=== PATIENT | male | born 1995 | race African-American/Black ===

== ENCOUNTER 2018-09-24 19:28 | Emergency (ER) | payer MEDICAID ==
[~2018-09-24] VITALS: Ht 172.7 cm; Wt 59.0 kg
[2018-09-24 20:45] VITALS: BP 145/85
[2018-09-24] MEDS ORDERED: SODIUM CHLORIDE 0.9% 1,000 ML IV ONE (20:57)
[2018-09-24] MEDS ORDERED: LORAZEPAM 2MG/ML CPJ IV ONE (21:00)
== END 2018-09-24 21:46 | disposition home or self-care (01) ==
LOC: ER 19:28
DX: F15.10 Other stimulant abuse, uncomplicated (principal); F32.9 Major depressive disorder, single episode, unspecified; F90.9 Attention-deficit hyperactivity disorder, unspecified type; N52.9 Male erectile dysfunction, unspecified
CPT/HCPCS: 99281; J7030

== ENCOUNTER 2019-06-09 12:34 | Emergency (ER) | payer MEDICAID ==
[~2019-06-09] VITALS: Ht 170.2 cm; Wt 61.0 kg
[2019-06-09 14:20] VITALS: BP 127/80
== END 2019-06-09 14:20 | disposition home or self-care (01) ==
LOC: ER 12:34
DX: Z03.89 Encounter for observation for other suspected diseases and conditions ruled out (principal); F32.9 Major depressive disorder, single episode, unspecified; F90.9 Attention-deficit hyperactivity disorder, unspecified type
CPT/HCPCS: 76870; 93976; 99284

== ENCOUNTER 2019-06-16 10:02 | Emergency (ER) | payer MEDICAID ==
[~2019-06-16] VITALS: Ht 345.4 cm; Wt 60.0 kg
[2019-06-16 10:57] LABS: CLARITY URINE TURBID (CLEAR); COLOR URINE YELLOW (YELLOW); KETONES URINE NEGATIVE (NEGATIVE); LEUKOCYTE ESTERASE URINE NEGATIVE (NEGATIVE); NITRITE URINE NEGATIVE (NEGATIVE); OCCULT BLOOD URINE NEGATIVE (NEGATIVE); PROTEIN URINE NEGATIVE (NEGATIVE); SPECIFIC GRAVITY URINE 1.019 (1.005-1.030); UROBILINOGEN URINE 0.2 E.U./dL (0.2-1.0)
[2019-06-16 11:15] VITALS: BP 115/72
== END 2019-06-16 11:25 | disposition home or self-care (01) ==
LOC: ER 10:02
DX: R10.30 Lower abdominal pain, unspecified (principal); F32.9 Major depressive disorder, single episode, unspecified
CPT/HCPCS: 81003; 99283

== ENCOUNTER 2019-09-03 21:42 | Emergency (ER) | payer MEDICAID ==
[~2019-09-03] VITALS: Ht 170.2 cm; Wt 67.5 kg
[2019-09-03] MEDS ORDERED: AZITHROMYCIN 500 MG TABLET PO ONE (23:45)
[2019-09-04 00:19] LABS: CLARITY URINE CLEAR (CLEAR); COLOR URINE YELLOW (YELLOW); KETONES URINE TRACE (NEGATIVE); LEUKOCYTE ESTERASE URINE NEGATIVE (NEGATIVE); NITRITE URINE NEGATIVE (NEGATIVE); OCCULT BLOOD URINE NEGATIVE (NEGATIVE); PH URINE 6.5 (4.5-8.0); PROTEIN URINE NEGATIVE (NEGATIVE); SPECIFIC GRAVITY URINE 1.029 (1.005-1.030); UROBILINOGEN URINE 0.2 E.U./dL (0.2-1.0)
[2019-09-04 00:45] VITALS: BP 122/67
[2019-09-06 08:07] LABS: CHLAMYDIA TRACHOMATIS NAA Negative (Negative); NEISSERIA GONORRHOEAE NAA Negative (Negative)
== END 2019-09-04 00:45 | disposition home or self-care (01) ==
LOC: ER 21:42
DX: N34.2 Other urethritis (principal); L03.011 Cellulitis of right finger
CPT/HCPCS: 81003; 82962; 87491; 87591; 99283

== ENCOUNTER 2019-09-05 09:44 | Emergency (ER) | payer MEDICAID ==
[~2019-09-05] VITALS: Ht 172.7 cm; Wt 67.0 kg
[2019-09-05] MEDS ORDERED: BACITRACIN ZINC OINT UDPKT TOP ONE (10:15)
[2019-09-05] MEDS ORDERED: LIDOCAINE HCL/PF 1% 10 MG/ML 5ML VIAL IJ ONE (10:15)
[2019-09-05] MEDS ORDERED: TRAMADOL 50MG TABLET PO ONE (10:30)
[2019-09-05 11:00] VITALS: BP 144/87
[2019-09-05] MEDS ORDERED: IBUPROFEN 600MG TABLET PO ONE (11:00)
== END 2019-09-05 11:04 | disposition home or self-care (01) ==
LOC: ER 09:44
DX: L03.011 Cellulitis of right finger (principal); Z20.2 Contact with and (suspected) exposure to infections with a predominantly sexual mode of transmission
CPT/HCPCS: 10060; 99284; J3490

== ENCOUNTER 2021-07-24 12:26 | Emergency (ER) | payer MEDICAID, OTHER ==
[~2021-07-24] VITALS: Ht 172.7 cm; Wt 76.0 kg
[2021-07-24 12:37] VITALS: BP 133/107
[2021-07-24 13:33] LABS: CLARITY URINE CLEAR (CLEAR); COLOR URINE DARK YELLOW (YELLOW); KETONES URINE 1+ (NEGATIVE); LEUKOCYTE ESTERASE URINE NEGATIVE (NEGATIVE); NITRITE URINE NEGATIVE (NEGATIVE); OCCULT BLOOD URINE NEGATIVE (NEGATIVE); PH URINE 5.5 (4.5-8.0); PROTEIN URINE NEGATIVE (NEGATIVE); SPECIFIC GRAVITY URINE 1.032 (1.005-1.030)
== END 2021-07-24 14:00 | disposition home or self-care (01) ==
LOC: ER 12:26
DX: R35.0 Frequency of micturition (principal); F12.10 Cannabis abuse, uncomplicated
CPT/HCPCS: 81003; 99283